=== PATIENT | female | born 1965 | race Caucasian/White ===

== ENCOUNTER 2017-01-11 13:39 | Emergency (ER) | payer MEDICAID, OTHER ==
[2017-01-11 13:59] VITALS: BP 157/86
--- NOTE | 2017-01-11 14:12 | UC ---
Lower Extremity/Ankle HPI - HPI Summary HPI Summary: RIGHT ANKLE PAIN X 1 DAY INVERSION INJURY OF THE RIGHT ANKLE AT WORK + PAIN AND SWELLING LATERAL RIGHT ANKLE - History of Current Complaint Chief Complaint: UCLowerExtremity Stated Complaint: RT ANKLE Time Seen by Provider: 01/11/17 14:04 Hx Obtained From: Patient Hx Last Menstrual Period: 2010 ?: No Onset/Duration: Sudden Onset, Lasting Days - 1, Still Present Severity Initially: Moderate Severity Currently: Moderate Aggravating Factor(s): Standing, Ambulation Alleviating Factor(s): Rest, Elevation, Ice Able to Bear Weight: Yes - Allergies/Home Medications Allergies/Adverse Reactions: Allergies Allergy/AdvReac Type Severity Reaction Status Date / Time Latex Allergy See Comment Verified 01/11/17 13:59 Home Medications: Home Medications Aleve 220mg 220 mg PO ONCE PRN 01/11/17 [History Confirmed 01/11/17] PMH/Surg Hx/FS Hx/Imm Hx Previously Healthy: Yes - Surgical History Surgical History: Yes Surgery Procedure, Year, and Place: . Tubal lig. 3 breast biopsy. bilateral carpal tunnel - Family History Known Family History: Positive: Diabetes - Social History Alcohol Use: Occasionally Substance Use Type: None Smoking Status (MU): Former Smoker When Did the Patient Quit Smoking/Using Tobacco: 2002 Review of Systems Constitutional: Negative Skin: Negative Eyes: Negative ENT: Negative Respiratory: Negative Is Patient Immunocompromised?: No All Other Systems Reviewed And Are Negative: Yes Physical Exam Triage Information Reviewed: Yes Appearance: Well-Appearing, No Pain Distress, Well-Nourished Vital Signs: Initial Vital Signs Temp 99.4 F 01/11/17 13:51 Pulse 109 01/11/17 13:51 Resp 20 01/11/17 13:51 BP 157/86 01/11/17 13:51 Vital Signs Reviewed: Yes Eyes: Positive: Conjunctiva Clear ENT: Positive: Normal ENT inspection, Hearing grossly normal, Pharynx normal Neck exam: Normal Neck: Positive: Supple, Nontender Respiratory: Positive: Chest non-tender, Lungs clear, Normal breath sounds Cardiovascular: Positive: RRR, No Murmur, Pulses Normal Musculoskeletal: Positive: Other: - RIGHT ANKLE: +SWELLING LATERAL ANKLE , TENDERNESS LATERAL ANKLE, GOOT ROM STABLE LIGAMENTS Skin Exam: Normal Lower Extremity Course/Dx - Differential Dx/Diagnosis Provider Diagnoses: SPRAIN RIGHT ANKLE Discharge - Discharge Plan Condition: Stable Disposition: HOME Patient Education Materials: Ankle Sprain (ED) Referrals: Non Staff,Doctor [Primary Care Provider] - 7 Days
--- NOTE | 2017-01-11 14:24 | RAD ---
INDICATION: Right ankle pain following inversion injury COMPARISON: None. TECHNIQUE: 3 views of the right ankle were obtained. FINDINGS: There is a moderate degree of soft tissue swelling overlying the fibular malleolus. The bones are normal alignment. Joint spaces appear maintained. No fracture is seen. IMPRESSION: SOFT TISSUE SWELLING OVERLYING THE FIBULAR MALLEOLUS WITHOUT UNDERLYING BONY FRACTURE OR DISLOCATION. If the patient's symptoms persist, follow-up imaging is recommended.
== END 2017-01-11 14:52 | disposition home or self-care (01) ==
LOC: UCCORT 13:39
DX: S93.401A Sprain of unspecified ligament of right ankle, initial encounter (principal); X50.1XXA Overexertion from prolonged static or awkward postures, initial encounter; Y92.89 Other specified places as the place of occurrence of the external cause; Z87.891 Personal history of nicotine dependence
CPT/HCPCS: 99211; 99212; G0463